=== PATIENT | female | born 1940 | race Caucasian/White ===

== ENCOUNTER → 2024-11-28 | Outpatient (CLI) | payer MEDICARE, BC, SELFPAY ==
--- NOTE | 2024-11-28 15:00 | XR_ITS ---
Examination: CT middle inner ear, without contrast. 2-D coronal reconstructions. 2-D sagittal reconstructions. Date and time of exam: November 28, 2024 1557 hrs. Indications: Bilateral hearing loss several years CTDI: vol (mGy): 15.8 DLP: (mGycm):236 Technique: Multiple 1.0 mm axial sections of the middle inner ears bilaterally. High-resolution 64 slice scanner utilized. 2-D coronal reconstructions 2-D sagittal reconstructions Low dose protocols were performed. One or more of the following dose reduction techniques were used; automated exposure control, adjustment of the mA and/or KV according to patient size, use of iterative reconstruction technique. Findings: Axial sections of the right demonstrate prominently reduced mastoid aeration. Jugular fossa and carotid canal do not appear remarkable. No deformity of the ossicles. Porus acusticus internus does not exhibit erosion. Cochlear apparatus unremarkable. Semicircular canals normal. External auditory canal open. Coronal reconstructions demonstrate no erosion of the scutum. No soft tissue mass in the attic or Prussak's space is seen. Ossicular mass intact. Axial sections of the left demonstrate predominantly reduced mastoid aeration. Jugular fossa and carotid canal do not appear remarkable. No deformity of the ossicles. Porus acusticus internus does not exhibit erosion. Cochlear apparatus unremarkable. Semicircular canals normal. External auditory canal open Coronal reconstructions demonstrate no erosion of the scutum. No soft tissue mass in the attic or Prussak's space is seen. Ossicular mass intact. All of the bones of the skull middle and inner ear are densely sclerotic Total opacification right maxillary antrum with occlusion of the right ostiomeatal complex Significant ethmoid mucosal disease Large frontal sinuses Deviation nasal septum to the left 5 mm Large sphenoid air cells No nasopharyngeal mass Impression: Bilateral chronic mastoiditis All visualized bones of the cranial vault facial bones middle and inner ear are densely sclerotic Significant sinusitis
== END | disposition home or self-care (01) ==
PROVIDERS: Referring Provider Otolaryngology; Visit Provider Otolaryngology
DX: H70.13 Chronic mastoiditis, bilateral (principal); H73.891 Other specified disorders of tympanic membrane, right ear; J32.8 Other chronic sinusitis
CPT/HCPCS: 70480

== ENCOUNTER 2025-02-06 06:25 | Day surgery (SDC) | payer MEDICARE, BC, SELFPAY ==
--- NOTE | 2025-02-04 06:32 | EKG_ITS ---
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
[2025-02-04 08:54] VITALS: BMI 23.6
[2025-02-04 08:59] VITALS: BMI 23.6
[2025-02-04 10:54] LABS: Alanine Aminotransferase 17 U/L (10-49); Albumin, Serum 4.5 gm/dL (3.4-4.8); Albumin/Globulin Ratio 1.7 (1.2-2.2); Alkaline Phosphatase 54 U/L (46-116); Anion Gap 11 (7-16); Aspartate Amino Transferase 22 U/L (0-34); BUN/Creatinine Ratio 18 Ratio (12-20); Bilirubin,Total 0.7 mg/dL (0.3-1.2); Blood Urea Nitrogen 16 mg/dL (9-23); Calcium 8.9 mg/dL (8.3-10.6); Calcium (Corrected) 8.9 mg/dL (8.5-10.1); Carbon Dioxide 23.3 mMol/L (20.0-31.0); Chloride 111 mMol/L (98-107); Creatinine (Component) 0.9 mg/dL (0.6-1.3); Estimated Creatinine Clearance 48.6 mL/min (>60); Globulin 2.7 gm/dL (2.3-3.5); Glucose 103 mg/dL (74-106); Osmolality,Calculated 289 (275-295); Potassium 4.1 mMol/L (3.4-5.1); Sodium 145 mMol/L (136-145); Total Protein 7.2 gm/dL (5.7-8.2); eGFR > 60 See Note
[2025-02-06] VITALS (10 sets, daily range): BP systolic 107–138; BP diastolic 60–82; PULSE 45–61; RESP 13–18; TEMP 36.5–36.7; O2SAT 99–100; BMI 23.8
[2025-02-06] MEDS: DEXAMETHASONE SOD PHOS INJ 10 MG/ML VIAL 8 MG IV (07:23)
--- NOTE | 2025-02-06 10:39 | XR_ITS ---
Examination: Skull series 2 views TECHNIQUE: Hetal sagittal oblique skull series 2 views Exam date and time: January 2025 1107 hours INDICATIONS: Postop cochlear implant today FINDINGS: Cochlear implant lead satisfactory position IMPRESSION: Cochlear implant lead satisfactory position
--- NOTE | 2025-02-06 10:41 | SUR.PHASEI ---
1041 Patient arrived to recovery resting comfortably in [facility], on oxygen 8L via oxy mask, breathing unlabored, vital signs stable, denies pain and nausea, dressing intact to ear; cotton ball, behind the ear dermabond, patient has area's on the dressing that is oozing, more dermabond applied, will monitor, report received from Andrew ESTRADA and Dr. Whittington
--- NOTE | 2025-02-06 10:43 | ESOP_ITS ---
Date of Procedure 02/06/25 Pre Op Diagnosis Bilateral severe sensorineural hearing loss Post Op Diagnosis Bilateral severe sensorineural hearing loss Procedure Left mastoidectomy with insertion of cochlear implant and facial nerve monitorin g Findings Normal mastoid and middle ear anatomy Procedure Description Indications: This is an 84-year-old female who has had progressive sensorineural hearing loss to the point where her hearing aids are not providing her much benefit any further. Audiometric testing showed a bilateral downsloping severe sensorineural hearing loss and [place] bio testing score was below 50%. Treatment options were discussed and the patient wished to proceed with implant insertion. She was made aware of the risks including hearing loss dizziness tinnitus facial nerve paralysis bleeding infection and potential need for further surgery. Patient was marked and shaved in the preoperative setting then transferred to the operative suite where she was anesthetized and intubated. Timeout was performed. The patient was sterilely prepped and draped after placing the facial nerve monitoring electrodes in the usual fashion. The patient had also been marked with methylene blue injection for the posterior margin of the external grinder machine knife setter. A lazy S postauricular incision was created and a palva flap was elevated after developing the anterior and posterior flaps. Anterior pocket was elevated for the placement of the ground electrode in the posterior pocket created for the insertion of the internal grinder machine knife setter. The ear was held forward with self-retaining retractors. Canal wall up mastoidectomy was then performed. The posterior canal wall was thinned. The dissection was kept anterior to the sigmoid sinus and inferior to the tegmen. Mastoid was well aerated. The aditus region was opened and the horizontal canal identified. The facial nerve was identified and confirmed in its normal location with the nerve stimulator. Chorda facial angle was opened up with emily burs progressing from the 2 mm down to 1 mm. The incudostapedial joint and stapedial tendon were visualized and eventually the round window niche was then visualized. Care was taken not to injure the facial nerve or the chorda tympani nerve. Round window niche was drilled back with the 1 mm bur in reverse mode. Good visualization of the round window was obtained then. The mastoid cavity was then irrigated with warm saline solution and suction. This was done after creating the well and channel for the internal grinder machine knife setter. The implant was applied into the field and placed into this pocket the round window was opened with this pick and then further opened with a small hook. The electrode was then inserted to full insertion with a jeweler's forceps and claw. Periosteum had been harvested earlier was used as a plug around the round window and electrode. The ground electrode was placed into this pocket. The palva flap was closed and neuro metric testing was performed and showed good responses at each step. Subcuticular closure was then performed with a 4-0 Vicryl and Dermabond on the skin. There was a small scrat ch on the posterior helix which was closed with Dermabond as well. The monitoring electrodes were removed the patient was awakened and taken the recovery room in stable condition Anesthesia GETA Implants Cochlear implant model CI 622 serial #[id number] Pathology / specimen None Estimated Blood Loss 20 Surgeon Nathaniel Hickman DO Surgical Staff Operation Date: 02/06/25 08:30 Case Staff Anesthesiologist: Oleksandr Whittington
--- NOTE | 2025-02-06 12:37 | SUR.PHASEII ---
1237 Patient meets discharge criteria from recovery, awake and alert, breathing unlabored, vital signs stable, denies pain, dressing intact; no bleeding noted, patient ate two jello's and drinking apple juice, denies nausea, voided in the restroom prior to discharge, patient assisted with dressing into her clothing by this scientific writer, discharge instructions given to patient and patients son, son signed discharge instructions. Patient given all her belongings prior to discharge, transported via wheelchair and left in a private vehicle.
== END 2025-02-06 12:37 | disposition home or self-care (01) ==
PROVIDERS: PCP Family Medicine; Referring Provider Otolaryngology; Visit Provider Otolaryngology
PROC: (CPT 69930; principal; 2025-02-06 08:30)
DX: H90.3 Sensorineural hearing loss, bilateral (principal); E78.00 Pure hypercholesterolemia, unspecified; Z01.810 Encounter for preprocedural cardiovascular examination; Z96.649 Presence of unspecified artificial hip joint; Z87.891 Personal history of nicotine dependence
CPT/HCPCS: 69930; 36415; 70250; 80053; 93005; A4217; A4649; J0171; J0690; J1100; J1885; J2405; J2704; J3010; J3473; J3490; J7040; L8614; L8690; Q9968; A9270

== ENCOUNTER → 2025-06-24 | Outpatient (CLI) | payer MEDICARE, BC, SELFPAY ==
--- NOTE | 2025-06-24 14:23 | XR_ITS ---
Examination: Lumbar spine 3 views Technique one AP lateral coned lateral lower lumbar spine 3 views Date and time: June 24, 2025 1445 hours INDICATIONS: Patient fell yesterday with injury of the lower back, lower back pain. FINDINGS: Severe osteopenia Grade 1 anterolisthesis L4 on L5 Moderate disc L4-L5, L5-S1 No lumbar fracture IMPRESSION: No lumbar fracture
--- NOTE | 2025-06-24 14:23 | XR_ITS ---
Examination: Cervical spine 4 views TECHNIQUE: AP, lateral, swimmer's lateral, coned AP odontoid cervical spine 4 views Date and time: June 24, 2025 1428 hours INDICATIONS: Patient fell yesterday with injury of the neck, neck pain. FINDINGS: Stable minimal anterolisthesis C5 on C4 compared with August 30, 2016 Moderate disc narrowing C3-C6 No cervical fracture Intact odontoid IMPRESSION: No cervical fracture
== END | disposition home or self-care (01) ==
LOC: CDIM 13:59
PROVIDERS: PCP Student in an Organized Health Care Education/Training Program; Referring Provider Student in an Organized Health Care Education/Training Program; Visit Provider Student in an Organized Health Care Education/Training Program
DX: S19.9XXA Unspecified injury of neck, initial encounter (principal); W19.XXXA Unspecified fall, initial encounter
CPT/HCPCS: 72040; 72100

== ENCOUNTER → 2025-07-08 | Outpatient (CLI) | payer MEDICARE, BC, SELFPAY ==
[2025-07-08 16:40] LABS: Basophils # (Auto) 0.1 Thou/mm3 (0.0-0.2); Basophils % (Auto) 1 % (0-2.5); Eosinophils # (Auto) 0.1 Thou/mm3 (0.0-0.5); Eosinophils % (Auto) 2 % (0-10); Hematocrit 39.8 % (36.0-46.0); Hemoglobin 13.1 g/dL (12.0-16.0); Immature Granulocytes Auto 0.01 Thou/mm3 (0.00-0.00); Lymphocytes # (Auto) 1.9 Thou/mm3 (1.0-4.8); Lymphocytes % (Auto) 30 % (10-50); Mean Corpuscular HGB Conc 32.9 g/dl (31.0-37.0); Mean Corpuscular Hemoglobin 29.2 pg (25.0-35.0); Mean Corpuscular Volume 89 fL (80-100); Monocytes # (Auto) 0.5 Thou/mm3 (0.0-0.8); Monocytes % (Auto) 8 % (0-12); Neutrophils # (Auto) 3.7 Thou/mm3 (1.8-7.7); Neutrophils % (Auto) 58 % (37-80); Nucleated Red Blood Cell # 0.00 Thou/mm3 (0.00-0.00); Nucleated Red Blood Cell % 0 /100 WBC (0); Platelet Count 203 Thou/mm3 (140-440); RDW Standard Deviation 44.1 fL (36.4-46.3); Red Blood Count 4.48 Miln/mm3 (4.00-5.20); White Blood Count 6.4 Thou/mm3 (3.6-11.0)
[2025-07-08 16:55] LABS: Anion Gap 9 (7-16); BUN/Creatinine Ratio 15 Ratio (12-20); Blood Urea Nitrogen 17 mg/dL (9-23); Calcium 9.0 mg/dL (8.3-10.6); Carbon Dioxide 25.6 mMol/L (20.0-31.0); Chloride 109 mMol/L (98-107); Creatinine (Component) 1.1 mg/dL (0.6-1.3); Glucose 97 mg/dL (74-106); Osmolality,Calculated 288 (275-295); Potassium 4.1 mMol/L (3.4-5.1); Sodium 144 mMol/L (136-145); Thyroid Stimulating Hormone 2.02 uIU/mL (0.55-4.78); eGFR 49 See Note
== END | disposition home or self-care (01) ==
LOC: COPL 14:20
PROVIDERS: PCP Student in an Organized Health Care Education/Training Program; Referring Provider Student in an Organized Health Care Education/Training Program; Visit Provider Student in an Organized Health Care Education/Training Program
DX: R00.1 Bradycardia, unspecified (principal)
CPT/HCPCS: 36415; 80048; 84443; 85025

== ENCOUNTER → 2025-07-14 | Outpatient (CLI) | payer MEDICARE, BC, SELFPAY ==
--- NOTE | 2025-07-14 | XR_ITS ---
EXAMINATION: Sacrum and coccyx 3 views TECHNIQUE: AP and find AP lateral sacrum and coccyx 3 views Date and time: July 14, 2025, 1137 hours INDICATIONS: Patient fell 3 weeks ago with injury to the sacrum, sacral pain. FINDINGS: Severe osteopenia Suspicious for nondisplaced fracture of fifth sacral segment IMPRESSION: Suspicious for nondisplaced fracture fifth sacral segment
== END | disposition home or self-care (01) ==
LOC: CDIM 10:51
PROVIDERS: PCP Student in an Organized Health Care Education/Training Program; Referring Provider Student in an Organized Health Care Education/Training Program; Visit Provider Student in an Organized Health Care Education/Training Program
DX: S32.19XA Other fracture of sacrum, initial encounter for closed fracture (principal); W19.XXXA Unspecified fall, initial encounter
CPT/HCPCS: 72220